=== PATIENT | male | born 1975 | race Hispanic/Latino ===

== ENCOUNTER 2017-07-23 17:57 | Emergency (ER) | payer SELFPAY ==
[2017-07-23 18:22] LABS: BASOPHILS % (AUTO) 0.4 % (0.0-5.0); EOSINOPHILS % (AUTO) 1.2 % (0.0-8.0); HEMATOCRIT 43.5 % (42-54); LYMPHOCYTES % (AUTO) 18.1 % (21.0-51.0); MEAN CORPUSCULAR HGB CONC 34.5 g/dL (32.0-36.0); MEAN CORPUSCULAR VOLUME 89.9 fL (79-99); NEUTROPHILS % (AUTO) 70.3 % (40.0-77.0); NUCLEATED RED BLOOD CELLS 0.1 % (0.0-0.19); PLATELET COUNT (AUTO) 244 K/uL (130-400); RED BLOOD CELL COUNT(AUTO) 4.84 MIL/uL (4.50-6.20); RED CELL DISTRIBUTION WIDTH 13.7 % (11.0-15.5); WHITE BLOOD COUNT (AUTO) 9.1 K/uL (4.8-10.8)
[2017-07-23 18:31] LABS: CREATININE 0.9 mg/dL (0.5-1.5); POTASSIUM 3.1 mmol/L (3.5-5.1)
[2017-07-23 18:36] LABS: ALBUMIN 4.3 g/dL (3.5-5.0); BILIRUBIN,TOTAL 0.6 mg/dL (0.2-1.0); TOTAL PROTEIN, SERUM 8.2 g/dL (6.0-8.3)
[2017-07-23 18:54] LABS: AMPHET/METH SCREEN,URINE NEGATIVE (NEGATIVE); BARBITURATE SCREEN, URINE NEGATIVE (NEGATIVE); BENZODIAZEPINES SCREEN,URINE NEGATIVE (NEGATIVE); CANNABINOID SCREEN,URINE POSITIVE (NEGATIVE); COCAINE SCREEN,URINE POSITIVE (NEGATIVE); OPIATE SCREEN,URINE NEGATIVE (NEGATIVE); PHENCYCLIDINE SCREEN,URINE NEGATIVE (NEGATIVE)
[2017-07-23 19:00] LABS: APPEARANCE,URINE Clear (CLEAR); BILIRUBIN,URINE Negative (NEGATIVE); COLOR,URINE Yellow (YELLOW); GLUCOSE, URINE (UA) Negative (NEGATIVE); KETONES,URINE Negative (NEGATIVE); LEUKOCYTE ESTERASE ,URINE Negative (NEGATIVE); NITRATE,URINE Negative (NEGATIVE); OCCULT BLOOD,URINE Negative (NEGATIVE); PH,URINE 6.5 (5.0-8.0); PROTEIN,URINE Negative (NEGATIVE); UROBILINOGEN,URINE 0.2 mg/dL (0.2-1.0)
== END 2017-07-23 21:57 | disposition home or self-care (01) ==
LOC: EDH 17:57
DX: F10.129 Alcohol abuse with intoxication, unspecified (principal); V49.49XA Driver injured in collision with other motor vehicles in traffic accident, initial encounter; Y93.89 Activity, other specified; Y92.89 Other specified places as the place of occurrence of the external cause; Y99.8 Other external cause status
CPT/HCPCS: 36415; 70450; 71045; 72170; 80053; 80305; 81003; 85025; 93005; 96360; 99285; G0480

== ENCOUNTER 2017-07-24 01:16 | Emergency (ER) | payer SELFPAY | END 2017-07-24 01:45 | disposition home or self-care (01) | LOC: EDH 01:16 | DX: R31.0 Gross hematuria (principal); R30.0 Dysuria ==

== ENCOUNTER 2017-07-24 05:37 | Emergency (ER) | payer SELFPAY | END 2017-07-24 06:18 | disposition home or self-care (01) | LOC: EDH 05:37 | DX: R31.0 Gross hematuria (principal); R30.0 Dysuria ==

== ENCOUNTER 2019-01-11 05:09 | Emergency (ER) | payer OTHER | END 2019-01-11 06:14 | disposition left against medical advice (07) | LOC: EDH 05:09 | DX: R07.89 Other chest pain (principal); Z72.0 Tobacco use | CPT/HCPCS: 93005 ==

== ENCOUNTER 2023-02-10 13:20 | Emergency (ER) | payer OTHER ==
[~2023-02-10] VITALS: Ht 172.7 cm; Wt 110.7 kg
[2023-02-10] MEDS ORDERED: CEPH500B PO (14:54)
[2023-02-10 15:57] VITALS: BP 132/78; PULSE 84; RESP 18; O2SAT 98
== END 2023-02-10 15:57 | disposition home or self-care (01) ==
LOC: EDH 13:20
DX: L02.212 Cutaneous abscess of back [any part, except buttock and flank] (principal)
CPT/HCPCS: 10060; 82948; 87070; 87076; 87077; 87186